=== PATIENT | female | born 2005 | race Caucasian/White ===

== ENCOUNTER 2025-05-31 16:17 | Emergency (ER) | payer BC, OTHER ==
[2025-05-31 17:22] LABS: Glucose, Urine (Dipstick) Normal (Negative); Leukocyte Negative (Negative); Protein, Urine (Dipstick) Negative (Neg-Trace); Specific Gravity, Urine 1.010 (1.005-1.030)
[2025-05-31 17:26] LABS: Pregnancy Test - Urine (BHCG) Negative (Negative); Pregu Control Background? CLEAR/WHITE (CLR/WHITE); Pregu Control Bar Appear? YES (CONTROL BAR)
[2025-05-31 17:48] LABS: CAUTI Indications for Culture Dysuria,urgency,freq; RBC/HPF 0-3 HPF (0-3)
[2025-05-31 17:49] LABS: Bacteria/HPF 2+ HPF (None Seen); Mucous/LPF 1+ LPF (<2+)
[2025-05-31 17:50] LABS: Urine Culture Reflex No No
[2025-05-31] MEDS ORDERED: Ibuprofen 200 MG TAB ONE (19:24)
[2025-06-01 02:26] LABS: Chlamydia by PCR, Vaginal Swab Not Detected (NotDetected); GC by PCR, Vaginal Swab Not Detected (NotDetected)
== END 2025-05-31 19:44 | disposition home or self-care (01) ==
LOC: CSHERS 16:17
DX: N30.00 Acute cystitis without hematuria (principal); Z79.899 Other long term (current) drug therapy
CPT/HCPCS: 81001; 81025; 87077; 87086; 87480; 87491; 87510; 87591; 87660; 99284